=== PATIENT | male | born 1985 | race Caucasian/White ===

== ENCOUNTER 2019-05-15 15:59 | Emergency (ER) | payer OTHER ==
[~2019-05-15] VITALS: Ht 165.1 cm; Wt 74.8 kg
== END 2019-05-15 20:59 | disposition home or self-care (01) ==
LOC: ER 15:59 → EDSEX 16:18 → ER 20:59
DX: T62.8X1A Toxic effect of other specified noxious substances eaten as food, accidental (unintentional), initial encounter (principal); K52.1 Toxic gastroenteritis and colitis; E86.0 Dehydration; Y92.89 Other specified places as the place of occurrence of the external cause